=== PATIENT | female | born 1985 | race American Indian/Alaskan Native ===

== ENCOUNTER 2022-01-05 08:27 | Emergency (ER) | payer MEDICAID ==
[2022-01-05] MEDS ORDERED: CYCLOBENZAPRINE 10 MG TAB PO ONE (09:08)
[2022-01-05] MEDS ORDERED: IBUPROFEN 800 MG TAB PO ONE (09:08)
--- NOTE | 2022-01-05 09:09 | Emergency Department Report ---
ED Back Pain/Injury HPI - General Chief Complaint: Back Pain/Injury Stated Complaint: RT SIDED PAIN Time Seen by Provider: 01/05/22 09:06 Source: EMS Limitations: No Limitations - History of Present Illness Initial Comments: She is a 36-year-old female that comes to fast track from an ambulance. EMS had picked her up at work because she bent over to open a safe and developed sharp back pain which was worse with movement. They gave her Toradol in route which has improved her pain. She denies any systemic symptoms. No abdominal pain. No nausea vomiting diarrhea. No back pain. No fever or chills. Patient denies any fall or trauma. She denies any recent MVC. She has not had this pain prior to bending over to open the safe. Yesterday she was in her usual health. She reports sleeping well and having no problems this morning upon awakening. Complaint: back pain -: Sudden, hour(s) Similar Symptoms Previously: No Place: work Radiation: none Improves With: immobilization Worsens With: movement Context: turning/twisting Associated Symptoms: denies other symptoms - Related Data Previous Rx's Medication Instructions Recorded Last Taken Type Cyclobenzaprine [Flexeril] 10 mg PO TID PRN #10 tablet 01/05/22 Unknown Rx Ibuprofen [Motrin] 800 mg PO Q8HR PRN #30 tablet 01/05/22 Unknown Rx predniSONE [Deltasone] 20 mg PO DAILY #5 tablet 01/05/22 Unknown Rx Allergies Allergy/AdvReac Type Severity Reaction Status Date / Time No Known Allergies Allergy Verified 01/05/22 08:37 ED Review of Systems ROS: Stated complaint: RT SIDED PAIN Other details as noted in HPI Comment: All other systems reviewed and negative ED Past Medical Hx - Past Medical History Previous Medical History?: No - Surgical History Past Surgical History?: Yes - Family History Family history: no significant - Social History Smoking Status: Never Smoker Substance Use Type: None - Medications Home Medications: Home Medications Medication Instructions Recorded Confirmed Last Taken Type Cyclobenzaprine [Flexeril] 10 mg PO TID PRN #10 tablet 01/05/22 Unknown Rx Ibuprofen [Motrin] 800 mg PO Q8HR PRN #30 tablet 01/05/22 Unknown Rx predniSONE [Deltasone] 20 mg PO DAILY #5 tablet 01/05/22 Unknown Rx ED Physical Exam - General Limitations: No Limitations General appearance: alert, in no apparent distress - Head Head exam: Present: atraumatic, normocephalic - Eye Eye exam: Present: normal appearance - ENT ENT exam: Present: mucous membranes moist - Neck Neck exam: Present: normal inspection - Respiratory Respiratory exam: Present: normal lung sounds bilaterally. Absent: respiratory distress - Cardiovascular Cardiovascular Exam: Present: regular rate, normal rhythm. Absent: systolic murmur, diastolic murmur, rubs, gallop - GI/Abdominal GI/Abdominal exam: Present: soft, normal bowel sounds - Extremities Exam Extremities exam: Present: normal inspection - Back Exam Back exam: Present: normal inspection - Neurological Exam Neurological exam: Present: alert, oriented X3 - Psychiatric Psychiatric exam: Present: normal affect, normal mood - Skin Skin exam: Present: warm, dry, intact, normal color. Absent: rash ED Course Vital Signs 01/05/22 01/05/22 08:35 10:47 Temperature 98.7 F Pulse Rate 99 H 70 Respiratory 16 16 Rate Blood Pressure 126/60 122/64 [Left] O2 Sat by Pulse 99 99 Oximetry ED Medical Decision Making - Medical Decision Making Medicated with Flexeril and Motrin while in the ER. She has already gotten Toradol IM per EMS. Vital Signs 01/05/22 08:35 Temperature 98.7 F Pulse Rate 99 H Respiratory 16 Rate Blood Pressure 126/60 [Left] O2 Sat by Pulse 99 Oximetry Patient is otherwise healthy. She has no systemic complaints. Her pain is worse with movement. Her pain was relieved some initially with Toradol. I then medicated her with Flexeril and Motrin and her pain further decreased. She has been neuro intact. She is moving all extremities. She has no systemic complaints. Patient being discharged home with family with discharge plan of care including diet, activity, medications and follow-up. She verbalizes understanding of plan of care. - Differential Diagnosis Back spasm Critical care attestation.: If time is entered above; I have spent that time in minutes in the direct care of this critically ill patient, excluding procedure time. ED Disposition Clinical Impression: Back pain Qualifiers: Back pain location: low back pain Chronicity: acute Back pain laterality: right Sciatica presence: without sciatica Qualified Code(s): M54.50 - Low back pain, unspecified Disposition: 01 HOME / SELF CARE / HOMELESS Is pt being admited?: No Does the pt Need Aspirin: No Condition: Stable Instructions: Acute Back Pain, Adult Additional Instructions: Warm baths may help. Medications as ordered today Follow-up with PCP Prescriptions: predniSONE [Deltasone] 20 mg PO DAILY #5 tablet Cyclobenzaprine [Flexeril] 10 mg PO TID PRN #10 tablet PRN Reason: Muscle Spasm Ibuprofen [Motrin] 800 mg PO Q8HR PRN #30 tablet PRN Reason: Pain, Moderate (4-6) Referrals: KORY KANG MD [Staff Physician] - 3-5 Days Forms: Work/School Release Form(ED) Time of Disposition: 09:08
[2022-01-05 10:48] VITALS: BP 122/64
== END 2022-01-05 10:58 | disposition home or self-care (01) ==
LOC: ED 08:27
DX: M54.50 Low back pain, unspecified (principal)
CPT/HCPCS: 99283